=== PATIENT | female | born 1975 | race Caucasian/White ===

== ENCOUNTER 2016-05-13 10:11 | Emergency (ER) | payer OTHER ==
[2016-05-13 10:16] VITALS: BP 118/82; PULSE 77; RESP 14; TEMP 97.3; O2SAT 94
--- NOTE | 2016-05-13 10:38 | DX ---
Left Ankle, 3 views, 9:59 AM Clinical History: 40-year-old female with pain after rolling her ankle. COMPARISON STUDY: None. FINDINGS: There is an obliquely-oriented spiral fracture with minimal displacement involving the post erolateral aspect of the distal fibular metadiaphyseal junction. There is some soft tissue swelling. The ankle mortise is maintained, and the talar dome is well-contoured. There is an age-indeterminate avulsion fragment seen anteriorly over the tibiotalar joint space on the lateral view with a small an kle joint effusion. The subtalar joint is normal. IMPRESSION: 1. Spiral fracture at the distal fibula metadiaphyseal junction with soft tissue swelling. 2. Age-indeterminate avulsion fragment projected anterior to the tibiotalar joint space, with a small ankle joint effusion.
--- NOTE | 2016-05-13 10:39 | EDPHY ---
General Narrative: CHIEF COMPLAINT: Fall, ankle pain HISTORY OF PRESENT ILLNESS: patient was walking on the ice within the past hour when she slipped, with her left foot going into inversion. She did slide down a few steps, with an abrasion to the right arm. She denies any head injury or loss of consciousness. There is no chest pain or back pain. No abdominal pain. No injuries to the arms or the right leg. The pain is on the lateral left ankle. It is moderate to severe. Unable to ambulate without significant pain. Radiates into the ankle joint. No tenderness of the proximal fibula. No pain of the ipsilateral foot, heel or knee. Improved at rest. No other associated complaints or modifying factors. Tetanus was last updated in 2011. REVIEW OF SYSTEMS: Ten systems reviewed and are negative unless otherwise noted in the HPI EXAMINATION General Appearance: Alert, no distress Head: normocephalic, atraumatic Eyes: Pupils equal and round, no conjunctival pallor or injection Neck: Normal inspection Respiratory: No dyspnea or retractions. No distress Cardiovascular: Pulses normal throughout with symmetric DP and PT pulses are 2+ . Brisk cap refill. Gastrointestinal: No distention Neurological: A&O, sensory symmetric, strength symmetric Skin: Warm and dry, no rash . Superficial abrasion to the dorsal medial aspect of the right forearm. No laceration or contusion to the arm. There is edema about the left ankle as noted below. Extremities: Left lower extremity: Moderate edema and ecchymosis to the left lateral malleolus. There is tenderness distally. No proximal fibular tenderness. No tenderness at the tibiotalar joint, heel or midfoot. Range of motion about the ankle is limited by pain. Neurovascular intact distally Psychiatric: Mood and affect normal MDM: Spinal fracture of the distal fibula without any proximal injury. No syndesmosis disruption. No abnormality of the mid foot or heel on examination. There is a probable chronic avulsion fragment located in the tibiotalar joint. She has no pain consistent with dislocation from the examination. Orthopedics will be contacted by phone, plan for outpatient follow-up with walker boot and crutches. CONSULTATIONS: Ortho: Dr. Schofield. Case discussed at 11:00 a.m.. He requested a posterior splint, crutches and he will see the patient outpatient clinic this week. No further requests. 11:12am I discussed this outpatient follow-up with the patient, she is comfortable with this plan. Discharged home in stable condition with splint, crutches, pain medication as needed. Recommend 6-800 mg ibuprofen every 8 hours as needed , or Aleve 1-2 pills every 12 hours as needed. ER precautions for worsening pain, cyanosis, pallor, paresthesia, paralysis. ED Precautions: Worsening pain. Erythema, edema, cyanosis, pallor, paresthesia or anesthesia. SUPERVISION: This patient was independently evaluated without the aide of supervising physician. - History Smoking Status: Never smoked - Objective Vital Signs: Initial Vital Signs Temperature (C) 97.3 F 05/13/16 10:14 Heart Rate 77 05/13/16 10:14 Respiratory Rate 14 05/13/16 10:14 Blood Pressure 118/82 H 05/13/16 10:14 O2 Sat (%) 94 05/13/16 10:14 O2 Delivery Mode Room Air Allergies/Adverse Reactions: No Known Allergies Allergy (Unverified 05/13/16 10:16) Home Medications: Medication Instructions Recorded oxyCODONE HCL/ACETAMINOPHEN 1 each PO Q4-6PRN PRN #12 tablet 05/13/16 [Percocet 5-325 mg Tablet] Departure - Departure Disposition: Home, Routine, Self-Care Clinical Impression: Fracture of distal end of fibula Qualifiers: Encounter type: initial encounter Fracture type: closed Fracture morphology: torus Laterality: left Qualifier Code: (S82.822A) Torus fracture of lower end of left fibula, initial encounter for closed fracture Ankle sprain Qualifiers: Encounter type: initial encounter Involved ligament of ankle: unspecified ligament Laterality: left Qualifier Code: (S93.402A) Sprain of unspecified ligament of left ankle, initial encounter Condition: Good Instructions: Ankle Fracture (ED) Additional Instructions: Follow-up with primary care physician and orthopedist for definitive care. Nonweightbearing on the lower extremity until seen by Orthopedics. Referrals: Clarence Mendoza MD [Primary Care Provider] - As per Instructions Ruben Schofield MD [Medical Doctor] - As per Instructions Prescriptions: oxyCODONE HCL/ACETAMINOPHEN [Percocet 5-325 mg Tablet] 1 each PO Q4-6PRN PRN # 12 tablet PRN Reason: Pain, Moderate
== END 2016-05-13 11:32 | disposition home or self-care (01) ==
DX: S82.822A Torus fracture of lower end of left fibula, initial encounter for closed fracture (principal); S93.402A Sprain of unspecified ligament of left ankle, initial encounter; W00.0XXA Fall on same level due to ice and snow, initial encounter; Y93.01 Activity, walking, marching and hiking

== ENCOUNTER → 2016-06-09 | Outpatient (CLI) | payer OTHER | LOC: BMCIMAGING 14:20 | PROVIDERS: ATTEND Podiatrist Foot & Ankle Surgery | DX: S82.832D Other fracture of upper and lower end of left fibula, subsequent encounter for closed fracture with routine healing (principal) ==

== ENCOUNTER → 2016-06-30 | Outpatient (CLI) | payer OTHER | LOC: BMCIMAGING 15:00 | PROVIDERS: ATTEND Podiatrist Foot & Ankle Surgery | DX: S82.402D Unspecified fracture of shaft of left fibula, subsequent encounter for closed fracture with routine healing (principal) ==

== ENCOUNTER → 2016-07-16 | Outpatient (CLI) | payer OTHER | LOC: BMCIMAGING 09:22 | PROVIDERS: ATTEND Podiatrist Foot & Ankle Surgery | DX: S82.832D Other fracture of upper and lower end of left fibula, subsequent encounter for closed fracture with routine healing (principal) ==

== ENCOUNTER → 2016-08-06 | Outpatient (CLI) | payer OTHER | LOC: BMCIMAGING 09:57 | PROVIDERS: ATTEND Podiatrist Foot & Ankle Surgery | DX: S82.832D Other fracture of upper and lower end of left fibula, subsequent encounter for closed fracture with routine healing (principal) ==